=== PATIENT | female | born 1980 | race Caucasian/White ===

== ENCOUNTER 2020-09-07 18:23 | Outpatient (CLI) | payer OTHER | END 2020-09-07 23:59 | disposition home or self-care (01) | LOC: D.MAMMO 18:23 | PROVIDERS: ATTEND Registered Nurse Emergency | DX: Z12.31 Encounter for screening mammogram for malignant neoplasm of breast (principal) ==

== ENCOUNTER → 2020-09-23 09:19 | Outpatient (CLI) | payer OTHER | END | disposition home or self-care (01) | LOC: D.US 09:19 | PROVIDERS: ATTEND Registered Nurse Emergency | DX: R92.8 Other abnormal and inconclusive findings on diagnostic imaging of breast (principal) ==